=== PATIENT | male | born 1985 | race Hispanic/Latino ===

== ENCOUNTER 2023-08-18 17:17 | Emergency (ER) | payer OTHER ==
[~2023-08-18] VITALS: Ht 170.2 cm; Wt 74.8 kg
[2023-08-18 18:34] VITALS: BP 122/80; PULSE 57; RESP 18; O2SAT 100
== END 2023-08-18 19:39 | disposition home or self-care (01) ==
LOC: EDH 17:17
DX: S02.2XXA Fracture of nasal bones, initial encounter for closed fracture (principal); Y08.89XA Assault by other specified means, initial encounter; Y93.89 Activity, other specified; Y92.89 Other specified places as the place of occurrence of the external cause; Y99.8 Other external cause status
CPT/HCPCS: 70450; 70486; 72125

== ENCOUNTER 2024-01-17 09:52 | Emergency (ER) | payer BC, OTHER ==
[~2024-01-17] VITALS: Ht 170.2 cm; Wt 77.1 kg
[2024-01-17] MEDS: CEPHALEXIN 500 MG CAPSULE PO ONE (10:15)
[2024-01-17] MEDS: HYDROXYZINE 25 MG TABLET PO ONE (10:16)
[2024-01-17] MEDS: TETANUS/DIPHTHERIA TOXOID [ADULT] 0.5 ML VIAL IM ONE (10:16)
[2024-01-17] MEDS: KETOROLAC 60 MG VIAL (30MG/ML) IM ONE (11:44)
[2024-01-17 15:28] VITALS: BP 131/72; PULSE 84; RESP 18; O2SAT 97
[2024-01-17] MEDS ORDERED: SULF1TAB42 PO (15:29)
[2024-01-17] MEDS ORDERED: CEPH500T PO (15:29)
== END 2024-01-17 15:42 | disposition home or self-care (01) ==
LOC: EDH 09:52
DX: L03.115 Cellulitis of right lower limb (principal)
CPT/HCPCS: 99284; 10060; 87070; 87076; 87077; 87186; 90714; 76882; 90471; 96372; J1885

== ENCOUNTER 2024-01-21 11:03 | Emergency (ER) | payer BC ==
[~2024-01-21] VITALS: Ht 213.4 cm; Wt 77.1 kg
[~2024-01-21 11:03] MED LIST: CEPH500T PO; SULF1TAB42 PO
[2024-01-21] MEDS: SULFAMETHOX-TMP DS 800/160 TAB PO SCH (11:30)
[2024-01-21] MEDS: IBUPROFEN 600 MG TABLET PO ONE (11:31)
[2024-01-21 12:04] VITALS: BP 122/74; PULSE 78; RESP 18; O2SAT 98
== END 2024-01-21 12:10 | disposition home or self-care (01) ==
LOC: EDH 11:03
DX: L03.115 Cellulitis of right lower limb (principal)